=== PATIENT | male | born 1950 | race Caucasian/White ===

== ENCOUNTER 2019-01-14 12:00 | Inpatient (IN) | payer OTHER ==
[2019-01-14] MEDS ORDERED: COZAAR50 MG PO (14:16)
[2019-01-14] MEDS ORDERED: METFORMIN HCL850 MG PO (14:16)
[2019-01-14] MEDS ORDERED: GABAPENTIN600 MG PO (14:17)
[2019-01-20] MEDS ORDERED: COLACE100 MG PO (18:01)
[2019-01-20] MEDS ORDERED: PERCOCET 5-3251 EACH PO (18:01)
[2019-01-20] MEDS ORDERED: CLONAZEPAM0.5 MG PO (18:01)
[2019-01-20] MEDS ORDERED: AMOX-CLAV 875-1 EACH PO (18:01)
[2019-01-20] MEDS ORDERED: NEURONTIN800 MG PO (18:01)
== END 2019-01-21 17:32 | DRG 455 ==
LOC: O/R 01-20 05:00 → SURH 01-20 12:00 → O/R 01-21 17:32
PROVIDERS: ADMIT Orthopaedic Surgery Orthopaedic Surgery of the Spine
PROC: 0SG0071 Fusion of Lumbar Vertebral Joint with Autologous Tissue Substitute, Posterior Approach, Posterior Column, Open Approach (ICD-10-PCS; 2019-01-20)
PROC: 0SG00AJ Fusion of Lumbar Vertebral Joint with Interbody Fusion Device, Posterior Approach, Anterior Column, Open Approach (ICD-10-PCS; 2019-01-20)
PROC: 0ST20ZZ Resection of Lumbar Vertebral Disc, Open Approach (ICD-10-PCS; 2019-01-20)
PROC: 07DS3ZZ Extraction of Vertebral Bone Marrow, Percutaneous Approach (ICD-10-PCS; 2019-01-20)
PROC: 0SG00A0 Fusion of Lumbar Vertebral Joint with Interbody Fusion Device, Anterior Approach, Anterior Column, Open Approach (ICD-10-PCS; principal; 2019-01-20 14:00)
DX: M47.26 Other spondylosis with radiculopathy, lumbar region (principal); M48.062 Spinal stenosis, lumbar region with neurogenic claudication; M51.16 Intervertebral disc disorders with radiculopathy, lumbar region; I10 Essential (primary) hypertension; E11.9 Type 2 diabetes mellitus without complications